=== PATIENT | female | born 1990 | race Asian ===

== ENCOUNTER 2020-03-06 13:47 | Emergency (ER) | payer OTHER ==
[~2020-03-06] VITALS: Ht 157.5 cm; Wt 63.0 kg
[2020-03-06 13:51] VITALS: BP 107/63
--- NOTE | 2020-03-06 13:51 | NUR ---
PT TAKEN TO BED 12.
--- NOTE | 2020-03-06 13:59 | NUR ---
29/F presents to ED with complaints of vaginal bleeding, started as spotting last night, approximately 30 mins ago pt states vaginal bleeding became heavier. Pt states she filled x1 panty liner and placed [address] and has not changed it since arrival. Pt c/o mild lower abdominal cramping and lower dull back pain for the past 2 days. Pt reports being 5 weeks , G-2 P-1.
--- NOTE | 2020-03-06 14:09 | NUR ---
PT RESTING IN BED, SIDE RAIL X1
--- NOTE | 2020-03-06 14:20 | NUR ---
US tech at bedside for exam.
[2020-03-06 14:37] LABS: BASOPHILS % (AUTO) 0.6 % (0.0-2.0); EOSINOPHILS # (AUTO) 0.7 K/uL (0-0.4); HEMATOCRIT 36.6 % (36-48); HEMOGLOBIN 12.1 g/dL (12.0-16.0); LYMPHOCYTES # (AUTO) 2.5 K/uL (2.5-16.5); LYMPHOCYTES % (AUTO) 32.4 % (20.5-51.1); MEAN CORPUSCULAR HEMOGLOBIN 31 pg (27-31); MEAN CORPUSCULAR HGB CONC 33 g/dL (33-37); MEAN CORPUSCULAR VOLUME 92.6 fL (80-94); MONOCYTES # (AUTO) 0.5 K/uL (0.8-1.0); MONOCYTES % (AUTO) 6.4 % (1.7-9.3); NEUTROPHILS % (AUTO) 51.6 % (42.2-75.2); PLATELET COUNT (AUTO) 304 K/uL (140-450); RED BLOOD CELL COUNT(AUTO) 3.95 MIL/uL (4.20-5.40); WHITE BLOOD COUNT (AUTO) 7.7 K/uL (4.8-10.8)
--- NOTE | 2020-03-06 15:58 | NUR ---
PT RESTING IN BED, SIDE RAIL X1
[2020-03-06 16:32] VITALS: BP 110/62
--- NOTE | 2020-03-06 16:32 | NUR ---
Patient discharged with v/s stable. Written and verbal after care instructions given and explained. Patient alert, oriented and verbalized understanding of instructions. Ambulatory with steady gait. All questions addressed prior to discharge. ID band removed. Patient advised to follow up with PMD. Rx of ACETAMINOPHEN,MACROBID given. Patient educated on indication of medication including possible reaction and side effects. Opportunity to ask questions provided and answered.
== END 2020-03-06 16:32 | disposition home or self-care (01) ==
LOC: MED 13:47
DX: O03.9 Complete or unspecified spontaneous abortion without complication (principal); J45.909 Unspecified asthma, uncomplicated; R82.71 Bacteriuria
CPT/HCPCS: 36415; 76817; 81002; 81025; 84702; 85025; 86900; 86901; 99284; Q0092